=== PATIENT | female | born 1940 | race Caucasian/White ===

== ENCOUNTER → 2016-06-01 | Outpatient (CLI) | payer MEDICARE, OTHER ==
--- NOTE | 2016-06-01 09:24 | RAD ---
DATE: 06/01/2016 EXAM: MAMMO ELIECER SCREENING BILATERAL HISTORY: Routine screening COMPARISON: 11/15/2014 This study was interpreted with the benefit of Computerized Aided Detection (CAD). FINDINGS: 2-D and 3-D tomosynthesis imaging was performed in CC and MLO projections. There are scattered fibroglandular densities in the breasts. No new or enlarging breast densities are seen. Benign type calcifications are present. No suspicious microcalcifications have developed. IMPRESSION: Stable mammograms without evidence of malignancy. BI-RADS CATEGORY: 2 BENIGN FINDING(S) RECOMMENDED FOLLOW-UP: 12M 12 MONTH FOLLOW-UP PQRS compliance statement: Patient information was entered into a reminder system with a target due date for the next mammogram. Mammography is a sensitive method for finding small breast cancers, but it does not detect them all and is not a substitute for careful clinical examination. A negative mammogram does not negate a clinically suspicious finding and should not result in delay in biopsying a clinically suspicious abnormality. "Our facility is accredited by the [employer] Mammography [employer]."
== END | disposition home or self-care (01) ==
LOC: MAMMO 08:28
PROVIDERS: ATTEND Family Medicine
DX: Z12.31 Encounter for screening mammogram for malignant neoplasm of breast (principal)
CPT/HCPCS: 77063; G0202; 77067

== ENCOUNTER → 2016-06-08 | Outpatient (CLI) | payer MEDICARE, OTHER ==
--- NOTE | 2016-06-08 11:40 | RAD ---
Thyroid ultrasound, 06/08/2016: History: Enlarged thyroid gland The right lobe of the gland measures 4.2 x 1.4 x 1.2 cm while the left lobe of the gland measures 3.4 x 1.2 x 1.1 cm. The thyroid echo pattern is mildly heterogeneous. In the lower pole of the right lobe of the gland there is a nodule containing echogenic and hypoechoic components. It contains a coarse calcification anteriorly. There is a hypoechoic halo. Including the halo, this lesion measures approximately 9 x 9 x 8 mm. In the midportion of the right lobe of the gland there is a 6 x 5 x 4 mm nodule which contains hypoechoic and echogenic components. Its margins are smooth. No definite calcifications are seen. There is a 3 mm nodule with similar sonographic characteristics in the lower pole of the left lobe of the gland. No other discrete thyroid nodule is seen. IMPRESSION: Multiple thyroid nodules as described above. The sonographic characteristics of these nodules are nonspecific. The 9 mm nodule in the lower pole of the right lobe of the gland does contain a calcification. Sonographic follow-up of this nodule is suggested.
== END | disposition home or self-care (01) ==
LOC: US 10:32
PROVIDERS: ATTEND Nurse Practitioner Family
DX: E04.2 Nontoxic multinodular goiter (principal)
CPT/HCPCS: 76536

== ENCOUNTER → 2016-11-06 | Outpatient (CLI) | payer MEDICARE, OTHER ==
[~2016-11-06] MED LIST: BUPIVACAINE MPF 0.25% 10 ML VIAL. ONE; IOHEXOL 300 MG/ML 50 ML VIAL. ONE; LIDOCAINE 1% PF 30 ML VIAL. ONE; methylPREDNISolone ACETATE 40 MG/ML VIAL. ONE
== END | disposition home or self-care (01) ==
LOC: SURG 14:03
PROVIDERS: ATTEND Anesthesiology
DX: G57.01 Lesion of sciatic nerve, right lower limb (principal); I10 Essential (primary) hypertension; J45.909 Unspecified asthma, uncomplicated; Z98.890 Other specified postprocedural states
CPT/HCPCS: 20552; J1030; J2001; J3490; Q9967

== ENCOUNTER → 2016-12-25 | Outpatient (CLI) | payer MEDICARE, OTHER | END | disposition home or self-care (01) | LOC: SURG 11:09 | PROVIDERS: ATTEND Anesthesiology | DX: M54.31 Sciatica, right side (principal); J45.909 Unspecified asthma, uncomplicated; I10 Essential (primary) hypertension; K21.9 Gastro-esophageal reflux disease without esophagitis; Z98.890 Other specified postprocedural states | CPT/HCPCS: 20552; 77002; J1030; J2001; J3490; Q9967 ==

== ENCOUNTER → 2017-09-25 | Outpatient (CLI) | payer MEDICARE, OTHER ==
--- NOTE | 2017-09-26 10:11 | RAD ---
DATE: 09/25/2017 EXAM: MAMMO ELIECER SCREENING BILATERAL HISTORY: Routine screening evaluation COMPARISON: 06/01/2016, 11/15/2014, 10/21/2013 This study was interpreted with the benefit of Computerized Aided Detection (CAD). The breast parenchyma is primarily fatty replaced. Breast parenchyma level density A. FINDINGS: There are no suspicious masses, microcalcifications, or architectural distortion to suggest malignancy in either breast. IMPRESSION: No mammographic evidence for malignancy in either breast. BI-RADS CATEGORY: 1 NEGATIVE RECOMMENDED FOLLOW-UP: 12M 12 MONTH FOLLOW-UP Recommendation: In the absence of new clinical symptoms or change in physical exam, annual screening mammography is recommended. PQRS compliance statement: Patient information was entered into a reminder system with a target due date for the next mammogram. Mammography is a sensitive method for finding small breast cancers, but it does not detect them all and is not a substitute for careful clinical examination. A negative mammogram does not negate a clinically suspicious finding and should not result in delay in biopsying a clinically suspicious abnormality. "Our facility is accredited by the [employer] Mammography [employer]."
== END | disposition home or self-care (01) ==
LOC: MAMMO 10:57
PROVIDERS: ATTEND Family Medicine
DX: Z12.31 Encounter for screening mammogram for malignant neoplasm of breast (principal); I10 Essential (primary) hypertension; K21.9 Gastro-esophageal reflux disease without esophagitis
CPT/HCPCS: 77063; 77067

== ENCOUNTER 2019-03-31 21:22 | Emergency (ER) | payer MEDICARE, OTHER ==
[~2019-03-31] VITALS: Ht 157.5 cm; Wt 60.9 kg
--- NOTE | 2019-03-31 22:53 | PHYS DOC ---
Past History Past Medical History: Anxiety, Hypertension Adult General Chief Complaint Chief Complaint: HYPERTENSION " My doctor ..didnt write me a HTN med... And the pharmacy didn't get a call for a new medication.... I am worried that I need a medication tonight... " HPI HPI Patient is a 79 year old female who presents with hypertension. Patient concerned because she went to pickle sorter her new hypertensive meds but it had not reached the pharmacy. Patient normally follows Dr. Carmona. Patient denies any headaches, chest pain or dizziness. Patient does have history of anxiety. Currently her blood pressure is 170/99. Patient is very anxious about the elevated blood pressure and constantly watching a monitor. Discussed patient that I would give her some clonidine and she could remove the patch when she gets her regular blood pressure meds filled. Patient does not know the new blood pressure med or dosage. After clonidine her blood pressure running 140s/70's. Patient discharged home. Review of Systems Review of Systems Constitutional: Denies fever or chills [] Eyes: Denies change in visual acuity, redness, or eye pain [] HENT: Denies nasal congestion or sore throat [] Respiratory: Denies cough or shortness of breath [] Cardiovascular: No additional information not addressed in HPI [] GI: Denies abdominal pain, nausea, vomiting, bloody stools or diarrhea [] : Denies dysuria or hematuria [] Musculoskeletal: Denies back pain. History of arthritic complaints especially left hip. Integument: Denies rash or skin lesions [] Neurologic: Denies headache, focal weakness or sensory changes [] Endocrine: Denies polyuria or polydipsia [] All other systems were reviewed and found to be within normal limits, except as documented in this note. Family History Family History Noncontributory Current Medications Current Medications See nursing for home meds Allergies Allergies No known drug allergies Physical Exam Physical Exam Constitutional: Well developed, well nourished, no acute distress, non-toxic appearance. [] HENT: Normocephalic, atraumatic, bilateral external ears normal, oropharynx moist, no oral exudates, nose normal. [] Eyes: PERRLA, EOMI, conjunctiva normal, no discharge. [] Neck: Normal range of motion, no tenderness, supple, no stridor. [] Cardiovascular:Heart rate regular rhythm, no murmur [] Lungs & Thorax: Bilateral breath sounds equal apex on auscultation [] Abdomen: Bowel sounds normal, soft, no tenderness, no masses, no pulsatile masses. [] Skin: Warm, dry, no erythema, no rash. [] Back: No tenderness, no CVA tenderness. [] Extremities: No tenderness, no cyanosis, no clubbing, ROM intact, no edema. [] Arthritic complaints Neurologic: Alert and oriented X 3, normal motor function, normal sensory function, no focal deficits noted. [] Psychologic: Affect anxious, judgement normal, mood normal. [] EKG EKG My interpretation EKG shows sinus rhythm at 90 bpm. No findings acute STEMI or pathology[] Radiology/Procedures Radiology/Procedures Patient deferred x-rays at this time[] Course & Med Decision Making Course & Med Decision Making Pertinent Labs and Imaging studies reviewed. (See chart for details) Patient deferred labs and x-rays at this time. Comfortable with temporary use of clonidine until she could pick her hypertensive meds. Patient return if any concerns. Patient advised she became dizzy and blood Pressures became to low to just remove the clonidine patch. Patient return if any concerns. Patient advi sed to keep regular blood pressure in a notebook and show it to Dr. Leon on follow-up. [] Impression: 1. Hx. HTN 2. Anxiety 3. Request for Blood pressure meds - Pharmacy did not received the Rx. 4. History of arthritic complaints Dragon Disclaimer Dragon Disclaimer This electronic medical record was generated, in whole or in part, using a voice recognition dictation system. Departure Departure: Disposition: 01 HOME/RESIDENCE PRIOR TO ADM Condition: STABLE Referrals: VINEET LEON MD (PCP) Dragon Disclaimer This chart was dictated in whole or in part using Voice Recognition software in a busy, high-work load, and often noisy Emergency Department environment. It may contain unintended and wholly unrecognized errors or omissions. Dragon Disclaimer This chart was dictated in whole or in part using Voice Recognition software in a busy, high-work load, and often noisy Emergency Department environment. It may contain unintended and wholly unrecognized errors or omissions. Dragon Disclaimer This chart was dictated in whole or in part using Voice Recognition software in a busy, high-work load, and often noisy Emergency Department environment. It may contain unintended and wholly unrecognized errors or omissions. CAMERON CANELA MD Mar 31, 2019 22:53
[2019-03-31] MEDS ORDERED: cloNIDine TTS-2 1 PATCH PATCH TD ONE (23:00)
[2019-03-31] MEDS ORDERED: cloNIDine HCL 0.1 MG TABLET PO ONE (23:30)
[2019-04-01] MEDS ORDERED: cloNIDine HCL 0.1 MG TABLET PO ONE (01:00)
[2019-04-01] MEDS ORDERED: LORazepam 1 MG TABLET PO ONE (01:00)
[2019-04-01 01:53] VITALS: BP 149/79
--- NOTE | 2019-04-01 03:53 | EKG ---
[address] [address] Test Date: 2019-03-31 Test Time: 22:26:12 Pat Name: KIM ANDINO Department: Room: Gender: F Recruitment And Outreach Assistant: : 1940 Requested By: CAMERON CANELA Order Number: [id number] Reading MD: Measurements Intervals [place] Rate: 90 P: 32 KS: 122 QRS: 36 QRSD: 82 T: 23 QT: 348 QTc: 430 Interpretive Statements SINUS RHYTHM NO SPECIFIC ECG ABNORMALITIES RI6.01 No previous ECG available for comparison
== END 2019-04-01 02:05 | disposition home or self-care (01) ==
LOC: ER 21:22
DX: I10 Essential (primary) hypertension (principal)
CPT/HCPCS: 93005; 99284

== ENCOUNTER 2019-08-03 09:34 | Inpatient (IN) | payer MEDICARE, OTHER ==
[~2019-08-03] VITALS: Ht 154.9 cm; Wt 58.1 kg
[2019-08-03] MEDS: ATORVASTATIN CALCIUM 10 MG TABLET. PO SCH (09:00)
[2019-08-03] MEDS ORDERED: IV NORMAL SALINE 1,000ML 1,000 ML IV ONE (09:45)
[2019-08-03] MEDS ORDERED: MECLIZINE 12.5 MG TABLET. PO ONE (09:45)
[2019-08-03 10:17] LABS: BASO % 1 % (0-3); EOS # 0.2 x10^3/uL (0.0-0.7); EOS % 3 % (0-3); HEMATOCRIT 40.1 % (36.0-47.0); HEMOGLOBIN 13.2 g/dL (12.0-15.5); LYMPH # 2.3 x10^3/uL (1.0-4.8); LYMPH % 38 % (24-48); MEAN CORPUSCULAR HEMOGLOBIN 28 pg (25-35); MEAN CORPUSCULAR HGB CONC 33 g/dL (31-37); MEAN CORPUSCULAR VOLUME 86 fL (79-100); MONO # 0.5 x10^3/uL (0.0-1.1); MONO % 9 % (0-9); NEUT % 50 % (31-73); PLATELET COUNT 270 x10^3/uL (140-400); RED BLOOD COUNT 4.64 x10^6/uL (3.50-5.40); RED CELL DISTRIBUTION WIDTH 15.1 % (11.5-14.5); WHITE BLOOD COUNT 6.1 x10^3/uL (4.0-11.0)
[2019-08-03 10:24] LABS: CALCIUM 9.7 mg/dL (8.5-10.1); CREATININE 0.8 mg/dL (0.6-1.0); GFR 69.4; POTASSIUM 3.3 mmol/L (3.5-5.1)
--- NOTE | 2019-08-03 10:24 | RAD ---
RS Compliance Statement: One or more of the following individualized dose reduction techniques were utilized for this examination: 1. Automated exposure control 2. Adjustment of the mA and/or kV according to patient size 3. Use of iterative reconstruction technique CT HEAD WITHOUT CONTRAST History: Reason: dizziness / Spl. Instructions: / History: Comparison: None. Technique: Axial images are obtained of the head from the skull base through the vertex without IV contrast. Findings: No mass-effect, midline shift, extra-axial fluid collection, hemorrhage, or obvious acute infarction is identified. Basilar cisterns are patent. The ventricles and sulci are prominent, consistent with age-related cerebral atrophy. There are probably old bilateral basal ganglia lacunar infarcts. There are incidental faint calcifications of the bilateral basal ganglia. Bone windows demonstrate no acute calvarial abnormality. The visualized paranasal sinuses are clear. Mastoid air cells are well aerated. IMPRESSION: 1. No acute intracranial abnormality. 2. Generalized cerebral atrophy. 3. There are likely chronic bilateral basal ganglia lacunar infarcts. Electronically signed by: Rafita Ware MD (08/03/2019 10:22 AM) [id number]
[2019-08-03 10:31] LABS: ALBUMIN 3.8 g/dL (3.4-5.0); ALBUMIN/GLOBULIN RATIO 0.9 (1.0-1.7); TOTAL BILIRUBIN 0.4 mg/dL (0.2-1.0); TOTAL PROTEIN 7.9 g/dL (6.4-8.2)
--- NOTE | 2019-08-03 10:39 | PHYS DOC ---
Past History Past Medical History: Anxiety, Hypertension Additional Past Medical Histor: left hip pain Past Surgical History: Appendectomy, Tonsillectomy, Tubal ligation, Other Additional Past Surgical Histo: hammer toes Alcohol Use: None General Adult EDM: Chief Complaint: DIZZY/LIGHT HEADED HPI: HPI: 79-year-old female presents with concern for TIA. She was having some visual disturbances last night in the middle of the night. It seemed like the clock was running sideways. That has improved today, but she still has dizziness. She describes the dizziness as a lightheaded feeling. She has no other focal deficits. She is speaking normally. She can move all of her extremities. She came here because her primary care physician advised it. She denies fever chills. Review of Systems: Review of Systems: Constitutional: Denies fever or chills Eyes: Denies change in visual acuity HENT: Denies nasal congestion or sore throat Respiratory: Denies cough or shortness of breath Cardiovascular: Denies chest pain or edema GI: Denies abdominal pain, nausea, vomiting, bloody stools or diarrhea : Denies dysuria Musculoskeletal: Denies back pain or joint pain Integument: Denies rash Neurologic: Dizziness. Denies headache, focal weakness or sensory changes Endocrine: Denies polyuria or polydipsia Lymphatic: Denies swollen glands Psychiatric: Denies depression or anxiety Heart Score: Risk Factors: Risk Factors: DM, Current or recent (<one month) smoker, HTN, HLP, family history of CAD, obesity. Risk Scores: Score 0 - 3: 2.5% MACE over next 6 weeks - Discharge Home Score 4 - 6: 20.3% MACE over next 6 weeks - Admit for Clinical Observation Score 7 - 10: 72.7% MACE over next 6 weeks - Early Invasive Strategies Current Medications: Current Meds: Current Medications Medications (Trade) Dose Ordered Sig/Adalid Start Time Stop Time Status Last Admin Dose Admin Meclizine HCl (Antivert) 25 mg 1X ONCE 08/03/19 09:45 08/03/19 09:49 DC 08/03/19 10:33 25 MG Sodium Chloride 1,000 ml @ 1,000 mls/hr 1X ONCE 08/03/19 09:45 08/03/19 10:44 08/03/19 10:33 1,000 MLS/HR Allergies: Allergies: Allergies Coded Allergies Type Severity Reaction Last Updated Verified No Known Drug Allergies 03/31/19 No Physical Exam: PE: Constitutional: Well developed, well nourished, no acute distress, non-toxic appearance. [] HENT: Normocephalic, atraumatic, bilateral external ears normal, oropharynx moist, no oral exudates, nose normal. [] Eyes: PERRLA, EOMI, conjunctiva normal, no discharge. [] Neck: Normal range of motion, no tenderness, supple, no stridor. [] Cardiovascular:Heart rate regular rhythm, no murmur [] Lungs & Thorax: Bilateral breath sounds clear to auscultation [] Abdomen: Bowel sounds normal, soft, no tenderness, no masses, no pulsatile masses. [] Skin: Warm, dry, no erythema, no rash. [] Back: No tenderness, no CVA tenderness. [] Extremities: No tenderness, no cyanosis, no clubbing, ROM intact, no edema. [] Neurologic: Alert and oriented X 3, normal motor function, normal sensory function, no focal deficits noted. [] Psychologic: Affect normal, judgement normal, mood normal. [] Current Patient Data: Labs: Laboratory Tests Test 08/03/19 09:57 White Blood Count 6.1 x10^3/uL (4.0-11.0) Red Blood Count 4.64 x10^6/uL (3.50-5.40) Hemoglobin 13.2 g/dL (12.0-15.5) Hematocrit 40.1 % (36.0-47.0) Mean Corpuscular Volume 86 fL (79-100) Mean Corpuscular Hemoglobin 28 pg (25-35) Mean Corpuscular Hemoglobin Concent 33 g/dL (31-37) Red Cell Distribution Width 15.1 % (11.5-14.5) H Platelet Count 270 x10^3/uL (140-400) Neutrophils (%) (Auto) 50 % (31-73) Lymphocytes (%) (Auto) 38 % (24-48) Monocytes (%) (Auto) 9 % (0-9) Eosinophils (%) (Auto) 3 % (0-3) Basophils (%) (Auto) 1 % (0-3) Neutrophils # (Auto) 3.0 x10^3uL (1.8-7.7) Lymphocytes # (Auto) 2.3 x10^3/uL (1.0-4.8) Monocytes # (Auto) 0.5 x10^3/uL (0.0-1.1) Eosinophils # (Auto) 0.2 x10^3/uL (0.0-0.7) Basophils # (Auto) 0.0 x10^3/uL (0.0-0.2) Sodium Level 142 mmol/L (136-145) Potassium Level 3.3 mmol/L (3.5-5.1) L Chloride Level 104 mmol/L (98-107) Carbon Dioxide Level 32 mmol/L (21-32) Anion Gap 6 (6-14) Blood Urea Nitrogen 18 mg/dL (7-20) Creatinine 0.8 mg/dL (0.6-1.0) Estimated GFR (Cockcroft-Gault) 69.4 BUN/Creatinine Ratio 23 (6-20) H Glucose Level 89 mg/dL (70-99) Calcium Level 9.7 mg/dL (8.5-10.1) Total Bilirubin 0.4 mg/dL (0.2-1.0) Aspartate Amino Transferase (AST) 21 U/L (15-37) Alanine Aminotransferase (ALT) 29 U/L (14-59) Alkaline Phosphatase 63 U/L (46-116) Total Protein 7.9 g/dL (6.4-8.2) Albumin 3.8 g/dL (3.4-5.0) Albumin/Globulin Ratio 0.9 (1.0-1.7) L EKG: EKG: Sinus rhythm, rate 70, normal axis, no ST elevations or depressions. [] Radiology/Procedures: Radiology/Procedures: [] Impressions: PQRS Compliance Statement: One or more of the following individualized dose reduction techniques were utilized for this examination: 1. Automated exposure control 2. Adjustment of the mA and/or kV according to patient size 3. Use of iterative reconstruction technique CT HEAD WITHOUT CONTRAST History: Reason: dizziness / Spl. Instructions: / History: Comparison: None. Technique: Axial images are obtained of the head from the skull base through the vertex without IV contrast. Findings: No mass-effect, midline shift, extra-axial fluid collection, hemorrhage, or obvious acute infarction is identified. Basilar cisterns are patent. The ventricles and sulci are prominent, consistent with age-related cerebral atrophy. There are probably old bilateral basal ganglia lacunar infarcts. There are incidental faint calcifications of the bilateral basal ganglia. Bone windows demonstrate no acute calvarial abnormality. The visualized paranasal sinuses are clear. Mastoid air cells are well aerated. IMPRESSION: 1. No acute intracranial abnormality. 2. Generalized cerebral atrophy. 3. There are likely chronic bilateral basal ganglia lacunar infarcts. Electronically signed by: Rafita Ware MD (08/03/2019 10:22 AM) [id number] DICTATED AND SIGNED BY: RAFITA WARE MD DATE: 08/03/19 1022 CC: PHAN LONG DO; VINEET MCNAIR MD ~ Course & Med Decision Making: Course & Med Decision Making Pertinent Labs and Imaging studies reviewed. (See chart for details) The patient's head CT is negative for acute findings. See official report for more details of old findings. Labs are unremarkable. Urinalysis is negative for infection. The patient is still feeling unsteady and dizzy when she walks. I believe it is prudent to admit her for further observation. I spoke with Dr. Mcnair and he has accepted the patient for admission. [] Dragon Disclaimer: Dragon Disclaimer: This electronic medical record was generated, in whole or in part, using a voice recognition dictation system. Departure Departure: Impression: Primary Impression: Dizziness Additional Impression: Lacunar infarction Disposition: 01 HOME/RESIDENCE PRIOR TO ADM Condition: STABLE Referrals: VINEET MCNAIR MD (PCP) Justification of Admission: Justification of Admission: Justification of Admission Dx: Yes Comments: new onset dizziness, concern for TIA, abnormal CT findings PHAN OLNG DO Aug 03, 2019 10:39
[2019-08-03 11:11] LABS: COLOR,URINE STRAW
[2019-08-03 11:12] LABS: BACTERIA,URINE 0 /HPF (0-FEW); BILIRUBIN,URINE NEG (NEG); CLARITY,URINE CLEAR; GLUCOSE,URINE NEG (NEG); NITRITE,URINE NEG (NEG); RBC,URINE OCC /HPF (0-2); SQUAMOUS EPITHELIAL CELL,UR FEW /LPF; UROBILINOGEN,URINE 0.2 mg/dL (0.2 mg/dL)
--- NOTE | 2019-08-03 11:14 | EKG ---
[address] [address] Test Date: 2019-08-03 Test Time: 09:47:49 Pat Name: KIM ANDINO Department: Room: Gender: F Audiologist: : 1940 Requested By: PHAN LONG Order Number: [id number] Reading MD: Measurements Intervals [place] Rate: 70 P: 47 AK: 140 QRS: 30 QRSD: 84 T: 28 QT: 390 QTc: 424 Interpretive Statements SINUS RHYTHM NORMAL ECG RI6.02 No previous ECG available for comparison
[2019-08-03 12:42] VITALS: BP 188/68
[2019-08-03] MEDS ORDERED: ONDANSETRON ODT 4 MG TAB.RAPDIS PO PRN (13:30)
[2019-08-03] MEDS ORDERED: NON FORMULARY ITEM (Albuterol Sulfate (Proair Respiclick) 2 PUFF) IH SCH (13:30)
[2019-08-03] MEDS ORDERED: ACETAMINOPHEN 500 MG TABLET PO PRN (13:30)
[2019-08-03] MEDS ORDERED: ACET500T68 PO (13:34)
[2019-08-03] MEDS ORDERED: PRAV40TA2 PO (13:34)
[2019-08-03] MEDS ORDERED: CYCL-331 PO (13:34)
[2019-08-03] MEDS ORDERED: DILT120C99 PO (13:34)
[2019-08-03] MEDS ORDERED: ONDA4TAB12 PO (13:34)
[2019-08-03] MEDS ORDERED: CALC-71 PO (13:34)
[2019-08-03] MEDS ORDERED: TRIA15CR3 TP (13:34)
[2019-08-03] MEDS ORDERED: BIOT10004 PO (13:34)
[2019-08-03] MEDS ORDERED: MULT-766 PO (13:34)
[2019-08-03] MEDS ORDERED: APIX5TAB3 PO (13:34)
[2019-08-03] MEDS ORDERED: ASCO500C PO (13:34)
[2019-08-03] MEDS ORDERED: LOSA25TA PO (13:34)
[2019-08-03] MEDS ORDERED: OMEP40CA45 PO (13:34)
[2019-08-03] MEDS ORDERED: PROAIR RESPICL90 MCG IH (13:34)
[2019-08-03] MEDS ORDERED: MECLIZINE 12.5 MG TABLET. PO PRN (13:45)
[2019-08-03] MEDS: amLODIPine BESYLATE 10 MG TABLET PO SCH (13:56)
[2019-08-03] MEDS ORDERED: ALBUTEROL SULFATE 2.5 MG/3 ML NEBU. NEB PRN (14:00)
[2019-08-03] MEDS ORDERED: CYCLOBENZAPRINE 10 MG TABLET. PO SCH (14:00)
[2019-08-03 15:26] VITALS: BP 129/72
--- NOTE | 2019-08-03 15:34 | RAD ---
EXAM: Carotid Doppler sonogram. HISTORY: Dizziness. Transient ischemic attack. TECHNIQUE: Hale scale and color Doppler sonographic evaluation of the neck with spectral waveform analysis was performed and static images are submitted for review. FINDINGS: There is mild atherosclerotic plaque within the right internal and external carotid arteries. The peak systolic velocity within the right common carotid artery is 95 cm/sec. The peak systolic velocity within the right internal carotid artery is 78 cm/sec and the end diastolic velocity within the right internal carotid artery is 21 cm/sec. The right ICA/CCA ratio is 1.2. There is shadowing partially calcified atherosclerotic plaque within the proximal left internal carotid artery. The peak systolic velocity within the left common carotid artery is 100 cm/sec. The peak systolic velocity within the left internal carotid artery is 106 cm/sec and the end diastolic velocity within the left internal carotid artery is 28 cm/sec. The left ICA/CCA ratio is 1.4. There is normal antegrade flow within both vertebral arteries. IMPRESSION: No Doppler evidence of hemodynamically significant stenosis. PQRS Compliance Statement - Stenosis calculations for CT, MR and conventional angiography are based upon measurement of the distal ICA diameter in accordance with the NASCET methodology. Stenosis calculations for carotid ultrasound studies are derived from validated velocity criteria which are known to correlate with the NASCET methodology. Electronically signed by: Viviana Hernandez MD (08/03/2019 3:31 PM) [id number]
--- NOTE | 2019-08-03 15:38 | RAD ---
Sinuses 3 views INDICATION: Pressure headaches and blurred vision COMPARISON: CT head without IV contrast of 08/03/2019 FINDINGS: The paranasal sinuses appear well aerated as do the bilateral mastoid air cells. The osseous structures appear intact. No radiopaque foreign body identified besides dental amalgam. IMPRESSION: Negative sinus series. Electronically signed by: Telma Walden MD (08/03/2019 3:35 PM) [id number]
[2019-08-03] MEDS ORDERED: POTASSIUM CHLORIDE 20 MEQ TABLET.ER. PO ONE (16:00)
[2019-08-03 19:16] VITALS: BP 145/67
[2019-08-03] MEDS: APIXABAN 5 MG TABLET. PO SCH (20:05)
[2019-08-03] MEDS: TRIAMCINOLONE ACETONIDE 0.1% TOPICAL CREAM 15GM TUBE. TP SCH (20:06)
--- NOTE | 2019-08-03 22:43 | CONS ---
DATE OF CONSULTATION: 08/03/2019 REFERRING PHYSICIAN: Dr. Leon. REASON FOR CONSULTATION: Dizziness and lightheadedness. HISTORY OF PRESENT ILLNESS: This is a 79-year-old right-handed female who was admitted through Emergency Room today, on 08/03/2019 on account of dizziness, described as lightheadedness and brief visual disturbances. According to the patient, she woke up this morning and she had spells of dizziness described as "lightheadedness" preceded by a few seconds of visual disturbances. After she went to bathroom, the patient felt dizzy again. She went to bed and she woke up this morning with lightheadedness continued for several hours. She denies nausea, vomiting, chest pain, shortness of breath or palpitations, dysarthria, dysphagia, weakness or paresthesia; however, the patient has had history of atrial fibrillation diagnosed in 04/2019 when she was in recovering room after having left hip replacement. Subsequently, she was placed on Eliquis. According to the patient, when she woke up this morning, her blood pressure was 181/90. Her blood pressure in the Emergency Room was reported as 180/90. It was thought that the patient had paroxysmal atrial fibrillation, but probably was artifact. Currently, the patient denies headaches, diplopia, dysphagia, or dysarthria. She has been ambulating using a cane because of recent left hip surgery. PAST MEDICAL HISTORY: Significant for atrial fibrillations as described above, hypertension, asthma, osteoarthritis, anxiety, GERD and hyperlipidemia. PAST SURGICAL HISTORY: Significant for left hip replacement in 04/2019, appendectomy, tonsillectomy, tubal ligation and hammertoe surgery. SOCIAL HISTORY: The patient is . She denies smoking, alcohol drinking, or illicit drug use. FAMILY HISTORY: Noncontributory. CURRENT MEDICATIONS: Include pantoprazole 40 mg daily, multivitamins 1 tablet daily, vitamin D 2000 units 1 tablet daily, vitamin C 500 mg daily, losartan 25 mg p.o. daily, diltiazem 240 mg p.o. daily, Kenalog b.i.d., Eliquis 5 mg b.i.d., albuterol inhaler and nebulizer, meclizine 12.5 mg q. 6 hours p.r.n. for dizziness given in the Emergency Room and on the floor, Zofran 4 mg q. 6 hours p.r.n. for nausea and vomiting, Tylenol p.r.n., amlodipine 10 mg p.o. daily and Lipitor 10 mg p.o. daily. ALLERGIES: No known drug allergies. REVIEW OF SYSTEMS: A 10-point review of system was performed as mentioned above in history of present illness and consistent with lightheadedness. PHYSICAL EXAMINATION: GENERAL: Well-developed, well-nourished female, not in acute distress. VITAL SIGNS: Blood pressure 129/72, respiratory rate 18, pulse is 61, oxygen saturation is 96% on room air, and temperature is 97.8. HEENT: Normocephalic, atraumatic, otherwise unremarkable. NECK: Supple. Negative for carotid bruit, lymphadenopathy or thyromegaly. LUNGS: Clear to A and P. CARDIOVASCULAR: Regular rate and rhythm, normal S1, S2. There is no S3, S4 or murmurs. ABDOMEN: Soft. Bowel sounds positive. EXTREMITIES: Negative for cyanosis, clubbing, or pitting edema. NEUROLOGICAL: MENTAL STATUS: The patient is alert and oriented x 3. Speech is fluent. There is no language dysfunction. Memory, judgment, and abstracting thinking are normal. The patient denies hallucination or delusion. CRANIAL NERVES: Visual eaton are full. The pupils are reactive to light and accommodation. The extraocular movements are intact. There is no nystagmus. There is no facial motor or sensory deficits. Hearing is intact bilaterally. The palate is elevated symmetrically. Sternocleidomastoid muscles are powerful bilaterally. The patient shrugs her shoulders symmetrically, protrudes her tongue in the midline without fasciculation or atrophy. MOTOR EXAMINATION: No focal muscle bulk was seen. The tone is normal. The strength is 5/5 throughout except for the strength in the left knee extension and flexion secondary to recent left hip surgery. SENSORY EXAMINATION: Revealed normal pinprick, light touch, vibratory and position senses. Deep tendon reflexes were symmetric and hypoactive with absent Achilles responses. GAIT: The patient uses a cane for ambulation. DIAGNOSTIC DATA: A carotid Doppler study today revealed no significant arterial stenosis. Nonenhanced head CT scan revealed no acute intracranial process, but shows generalized cerebral atrophy with chronic bilateral basal ganglia lacunar infarct. Sinus x-ray revealed normal study. LABORATORY DATA: CBC revealed white blood cells of 6.1 thousand, hemoglobin 13.2, hematocrit 40.1, platelet count 278,000. Chemistry revealed sodium 142, potassium 3.3, chloride 104, CO2 of 32, BUN 18, creatinine 0.8, glucose 89, calcium 9.7. Liver enzymes are normal. CRP is normal at 2.1 and albumin is normal. Urinalysis is negative for urinary tract infections. IMPRESSION: 1. Questionable transient ischemic attack in posterior circulation described as lightheadedness; however, paroxysmal atrial fibrillation for cardiac arrhythmia could not be entirely ruled out. 2. Hypertension may have contributed to the intermittent current symptoms as described above. 3. Multiple medical problems include hypertension, hyperlipidemia, osteoarthritis and history of atrial fibrillation. RECOMMENDATIONS: 1. Continue with current management and home medications. 2. Continue with meclizine on p.r.n. basis. 3. We will arrange for brain MRI on an outpatient basis. M Lin YOUNG MD DR: MONA/negin JOB#: [id number] / [id number]
[2019-08-03 23:20] VITALS: BP 136/86
[2019-08-04 05:47] VITALS: BP 129/70
[2019-08-04 07:40] VITALS: BP 166/95
[2019-08-04] MEDS: amLODIPine BESYLATE 10 MG TABLET PO SCH (08:00)
[2019-08-04] MEDS: APIXABAN 5 MG TABLET. PO SCH (08:00)
[2019-08-04] MEDS: ATORVASTATIN CALCIUM 10 MG TABLET. PO SCH (08:01)
[2019-08-04] MEDS: TRIAMCINOLONE ACETONIDE 0.1% TOPICAL CREAM 15GM TUBE. TP SCH (08:02)
[2019-08-04 08:54] VITALS: BP 170/70
[2019-08-04 08:55] VITALS: BP 171/73
[2019-08-04 08:56] VITALS: BP 160/83
[2019-08-04] MEDS ORDERED: CALCIUM CARB/VIT D3 500/200 TABLET PO SCH (09:00)
[2019-08-04] MEDS ORDERED: PANTOPRAZOLE 40 MG TABLET. PO SCH (09:00)
[2019-08-04] MEDS ORDERED: NON FORMULARY ITEM (Biotin 1 TAB) PO SCH (09:00)
[2019-08-04] MEDS ORDERED: ASCORBIC ACID 500 MG TABLET PO SCH (09:00)
[2019-08-04] MEDS ORDERED: MULTIVITAMIN with MINERAL TABLET. PO SCH (09:00)
[2019-08-04] MEDS ORDERED: LOSARTAN 25 MG TABLET. PO SCH (09:00)
--- NOTE | 2019-08-04 09:21 | PN ---
DATE: 08/04/2019 SUBJECTIVE: The patient denies any new medical or neurological complaints. She denies dizziness or lightheadedness. She denies chest pain, shortness of breath or palpitation. OBJECTIVE: GENERAL: Well-developed, well-nourished female, not in acute distress. VITAL SIGNS: Afebrile, blood pressure 160/83, respiratory rate 20, pulse is 84 and regular, oxygen saturation 96% on room air. HEENT: Normocephalic, atraumatic, otherwise unremarkable. NECK: Supple. Negative for carotid bruit, lymphadenopathy or thyromegaly. LUNGS: Clear to A and P. CARDIOVASCULAR: Regular rate and rhythm, normal S1, S2. There is no S3, S4 or murmur. ABDOMEN: Soft. Bowel sounds positive. EXTREMITIES: Negative for cyanosis, clubbing or edema. NEUROLOGICAL EXAM: Normal mental status and intact cranial nerves. There is no focal motor or sensory deficit. Deep tendon reflexes were symmetric and hypoactive with absent Achilles responses. Gait: The patient uses a cane for ambulation. IMPRESSION: 1. Sudden onset of dizziness described as lightheadedness, etiology is uncertain, rule out paroxysmal cardiac arrhythmias as atrial fibrillation, not present at this time. 2. Multiple medical problems include hypertension, atrial fibrillations, hyperlipidemia, osteoarthritis and history of left hip replacement. RECOMMENDATIONS: Continue with current management initiated by Dr. Leon and watch for blood pressure closely. The patient is neurologically stable. We will continue with previous neurological recommendations. M Lin YONUG MD DR: MONA/negin JOB#: [id number] / [id number]
[2019-08-04] MEDS ORDERED: MECL12.573 PO (09:28)
[2019-08-04] MEDS ORDERED: PHEN15SP NS (09:28)
[2019-08-04] MEDS ORDERED: AMLO10TA8 PO (09:28)
[2019-08-04] MEDS ORDERED: PHENYLEPHRINE 0.25% NASAL SPRAY 15ML BOTTLE. NS PRN (09:30)
[2019-08-04 09:31] VITALS: BP 149/70
== END 2019-08-04 10:45 | disposition home or self-care (01) | DRG 74 ==
LOC: ER 09:34 → 1 SOUTH 11:45
PROVIDERS: ADMIT Family Medicine; ATTEND Family Medicine
DX: G90.8 Other disorders of autonomic nervous system (principal); G45.9 Transient cerebral ischemic attack, unspecified; I67.841 Reversible cerebrovascular vasoconstriction syndrome; I10 Essential (primary) hypertension; F41.9 Anxiety disorder, unspecified; K21.9 Gastro-esophageal reflux disease without esophagitis; Z96.642 Presence of left artificial hip joint; I48.0 Paroxysmal atrial fibrillation; E78.5 Hyperlipidemia, unspecified; M19.90 Unspecified osteoarthritis, unspecified site; J45.909 Unspecified asthma, uncomplicated; Z90.49 Acquired absence of other specified parts of digestive tract; Z98.51 Tubal ligation status; H53.8 Other visual disturbances
CPT/HCPCS: 36415; 70220; 70450; 80053; 81001; 85025; 86140; 93005; 93880; 96360; 96361; J8597; 99285-25; J7030

== ENCOUNTER → 2019-08-18 | Outpatient (CLI) | payer MEDICARE, OTHER ==
[2019-08-04 09:31] VITALS: BP 149/70
[~2019-08-18] MED LIST changes: +ACET500T68 PO; +AMLO10TA8 PO; +APIX5TAB3 PO; +ASCO500C PO; +BIOT10004 PO; -BUPIVACAINE MPF 0.25% 10 ML VIAL. ONE; +CALC-71 PO; +CYCL-331 PO; +DILT120C99 PO; -IOHEXOL 300 MG/ML 50 ML VIAL. ONE; -LIDOCAINE 1% PF 30 ML VIAL. ONE; +LOSA25TA PO; +MECL12.573 PO; +MULT-766 PO; +OMEP40CA45 PO; +ONDA4TAB12 PO; +PHEN15SP NS; +PRAV40TA2 PO; +PROAIR RESPICL90 MCG IH; +TRIA15CR3 TP; -methylPREDNISolone ACETATE 40 MG/ML VIAL. ONE
--- NOTE | 2019-08-18 16:32 | RAD ---
EXAM: Bilateral lower extremity venous Doppler sonogram. HISTORY: Pain and swelling. TECHNIQUE: Hale scale and color Doppler sonographic evaluation of the bilateral lower extremity veins with spectral waveform analysis was performed. FINDINGS: There is normal color flow, normal compressibility and there are normal spectral waveforms in the common femoral, superficial femoral, popliteal, posterior tibial and greater saphenous veins. IMPRESSION: No Doppler evidence of lower extremity deep venous thrombosis. Electronically signed by: Viviana Hernandez MD (08/18/2019 4:29 PM) [id number]
== END ==
LOC: US 15:56
PROVIDERS: ATTEND Family Medicine
DX: R60.9 Edema, unspecified (principal); M79.661 Pain in right lower leg; M79.662 Pain in left lower leg
CPT/HCPCS: 93970

== ENCOUNTER → 2019-08-24 | Outpatient (CLI) | payer MEDICARE, OTHER ==
[2019-08-04 09:31] VITALS: BP 149/70
[~2019-08-24] MED LIST changes: +CONTRAST GIVEN MC PRN; +IOHEXOL 240 MG/ML 50ML VIAL. ONE; +IOHEXOL 240 MG/ML 50ML VIAL. PO ONE; +IOHEXOL 300 MG/ML 75 ML VIAL. IV ONE
--- NOTE | 2019-08-24 12:23 | RAD ---
CT abdomen and pelvis with contrast History: Bilateral lower extremity swelling, worsening symptoms Technique: After the administration of intravenous contrast, CT imaging was performed of the abdomen and pelvis. Oral contrast was also given. Multiplanar images are reviewed. Exposure: One or more of the following individualized dose reduction techniques were utilized for this examination: 1. Automated exposure control 2. Adjustment of the mA and/or kV according to patient size 3. Use of iterative reconstruction technique. Comparison: None Findings: There is no significant abnormality of the visualized lung bases. There is no significant abnormality of the liver, spleen, pancreas, adrenal glands. Both kidneys enhance. There is mild bilateral renal hydronephrosis, neither ureter dilated. Gallbladder is present without obvious intraluminal abnormality by, appearance of degree of nonspecific mild thin peripheral enhancement of the gallbladder wall. There is no significant inflammatory change adjacent to the bowel. There is no evidence of bowel obstruction, free fluid, or free air. There reportedly has been appendectomy. There is some variable retained stool in colon. There is scattered calcified plaque of the abdominal aorta and branches including of the proximal bilateral renal arteries. There is artifact in the pelvis created by left hip arthroplasty. There is mild dextroscoliosis centered upon the mid lumbar spine. There is multilevel thoracolumbar degenerative disc disease and spondylosis. There is multilevel variable lumbar neural foramina compromise and lateral recess stenosis, more significant spinal stenosis at L4-5. Impression: 1. There is appearance of degree of thin gallbladder wall enhancement. Ultrasound catheterization may be beneficial to ensure no underlying mass although no definitive mass by CT. 2. There is mild bilateral renal hydronephrosis, no previous exams to evaluate for change although could be chronic. There is no hydroureter on either side. 3. There is multilevel thoracolumbar degenerative disc disease. There is multilevel variable lateral recess stenosis, worsening spinal stenosis at L4-5. There is also variable multilevel neural foramina compromise. Electronically signed by: Jaime Walden MD (08/24/2019 12:20 PM) [id number]
== END | disposition home or self-care (01) ==
LOC: CT 09:18
PROVIDERS: ATTEND Family Medicine
DX: N13.30 Unspecified hydronephrosis (principal); I70.1 Atherosclerosis of renal artery; I70.0 Atherosclerosis of aorta; M41.86 Other forms of scoliosis, lumbar region; M51.35 Other intervertebral disc degeneration, thoracolumbar region; M47.815 Spondylosis without myelopathy or radiculopathy, thoracolumbar region; M48.061 Spinal stenosis, lumbar region without neurogenic claudication
CPT/HCPCS: 74177; Q9966; Q9967

== ENCOUNTER → 2019-08-31 | Outpatient (CLI) | payer MEDICARE, OTHER ==
[2019-08-04 09:31] VITALS: BP 149/70
[~2019-08-31] MED LIST changes: -CONTRAST GIVEN MC PRN; -IOHEXOL 240 MG/ML 50ML VIAL. ONE; -IOHEXOL 240 MG/ML 50ML VIAL. PO ONE; -IOHEXOL 300 MG/ML 75 ML VIAL. IV ONE
--- NOTE | 2019-08-31 09:48 | RAD ---
EXAM: Abdomen sonogram. HISTORY: Cholecystitis. TECHNIQUE: Sonographic imaging of the abdomen was performed. COMPARISON: CT dated 08/24/2019. FINDINGS: The liver is normal in size. No focal hepatic lesion is seen. The common bile duct is normal in caliber. The gallbladder wall is normal in thickness. There is no cholelithiasis. The pancreas and inferior vena cava are obscured due to bowel gas. The right kidney measures 8.3 cm [id number]. There is a prominent right renal pelvis. The aorta is not formally assessed. IMPRESSION: 1. No sonographic evidence of cholecystitis. 2. Slight decreased right renal size. This suggests mild renal atrophy. 3. Prominent right renal pelvis. This may be due to pelviectasis or extrarenal pelvis. Electronically signed by: Viviana Hernandez MD (08/31/2019 9:45 AM) [id number]
== END | disposition home or self-care (01) ==
LOC: US 08:55
PROVIDERS: ATTEND Family Medicine
DX: K81.0 Acute cholecystitis (principal)
CPT/HCPCS: 76705

== ENCOUNTER 2019-09-20 19:53 | Emergency (ER) | payer MEDICARE, OTHER ==
[~2019-09-20] VITALS: Ht 154.9 cm; Wt 58.0 kg
--- NOTE | 2019-09-20 20:29 | PHYS DOC ---
Past History Past Medical History: A-Fib, Anxiety, Asthma, Hypertension Additional Past Medical Histor: left hip pain Past Surgical History: Appendectomy, Tonsillectomy, Tubal ligation, Other Additional Past Surgical Histo: hammer toes; hip surgery april 2019 Alcohol Use: None General Adult EDM: Chief Complaint: HYPERTENSION HPI: HPI: 79-year-old female past medical history significant for hypertension, anxiety, asthma and atrial fibrillation (on plavix & cardizem), presents to the ED with complaints of intermittent fatigable episodes of dizziness today with elevated blood pressure-has taken her bp 7-8 times at home, sbp 140-180s, DBP 90s. States she is currently being treated for sinusitis with Augmentin and has felt as if her head is foggy. Losartan was increased from 25 to 50 mg 2 weeks ago by pmd Dr. Carmona. States she was admitted in the past with identical symptoms. Was prescribed meclizine at this time and took 3 tablets today without relief. No history of head trauma falls or syncope. On no anticoagulants. Denies any alcohol or drug use. Review of systems: Denies associated fever, chills, neck stiffness, headache, blurry vision, hearing loss, tinnitus, cough, sore throat, chest pain or pressure, dyspnea, hemoptysis, nausea, vomiting, diarrhea, abdominal pain, back pain, dysuria, hematuria, flank pain, leg swelling, rash or hemoptysis. Review of Systems: Review of Systems: Constitutional: Denies fever or chills Eyes: Denies change in visual acuity Lymphatic: Denies swollen glands Psychiatric: Denies depression or anxiety Allergies: Allergies: Allergies Coded Allergies Type Severity Reaction Last Updated Verified No Known Drug Allergies 08/03/19 No Physical Exam: PE: Constitutional: Well developed, well nourished, no acute distress, non-toxic appearance. [] HENT: Normocephalic, atraumatic, bilateral external ears normal, oropharynx moist, no oral exudates, nose normal. [] Eyes: PERRLA, EOMI, conjunctiva normal, no discharge. [] +horizontal nystagmus, Neck: Normal range of motion, no tenderness, supple, no stridor. [] Cardiovascular:Heart rate regular rhythm, no murmur [] Lungs & Thorax: Bilateral breath sounds clear to auscultation [] Abdomen: Bowel sounds normal, soft, no tenderness, no masses, no pulsatile masses. [] Skin: Warm, dry, no erythema, no rash. [] Back: No tenderness, no CVA tenderness. [] Extremities: No tenderness, no cyanosis, no clubbing, ROM intact, no edema. [] Neurologic: Alert and oriented X 3, normal motor function, normal sensory function, no focal deficits noted. HINTS exam consistent with peripheral causes, normal FNF/NALINI Psychologic: Affect normal, judgement normal, mood normal. [] Current Patient Data: Vital Signs: Vital Signs Date Time Temp Pulse Resp B/P (MAP) Pulse Ox O2 Delivery O2 Flow Rate FiO2 09/20/19 20:04 98.0 88 20 180/91 (120) 97 Room Air EKG: EKG: Normal sinus rhythm at 77 bpm, no axis deviation, normal intervals, no T wave inversions, no ST elevations or ST depressions Radiology/Procedures: Radiology/Procedures: [] IMAGING REPORT Signed PATIENT: KIM ANDINO ACCOUNT: [id number] : 1940 LOCATION: ER AGE: 79 SEX: F EXAM STATUS: REG ER ORD. PHYSICIAN: SUSI POWER DO REASON: dizzy, htn PROCEDURE: CT HEAD WO CONTRAST CT HEAD WO CONTRAST History:Dizziness, hypertension Comparison: August 03, 2019 Technique: Noncontrast CT imaging was performed of the head. Exposure: One or more of the following individualized dose reduction techniques were utilized for this examination: 1. Automated exposure control 2. Adjustment of the mA and/or kV according to patient size 3. Use of iterative reconstruction technique. Findings: There is no evidence of acute intracranial hemorrhage. There is again mild generalized supratentorial atrophy, ventricular size proportionate to sulcal spaces. There are again some foci of lower density of the bilateral basal ganglia which may be sequela of old lacunar infarcts. Hale-white differentiation of the major vascular territories is preserved. There is again small posterior sphenoid sinus mucous retention cyst. Mastoid air cells are aerated. Impression: 1. No acute intracranial abnormality is identified. Electronically signed by: Arsen Llamas MD (09/20/2019 8:55 PM) [facility] DICTATED AND SIGNED BY: ARSEN LLAMAS MD DATE: 09/20/192054 CC: VINEET MCNAIR MD; SUSI POWER DO ~ IMAGING REPORT Signed PATIENT: KIM ANDINO ACCOUNT: [id number] : 1940 LOCATION: ER AGE: 79 SEX: F EXAM STATUS: REG ER ORD. PHYSICIAN: SUSI POWER DO REASON: dizzy, HTN PROCEDURE: CHEST AP ONLY Exam: Chest one view INDICATION: Dizzy, hypertension TECHNIQUE: Frontal view of the chest Comparisons: None FINDINGS: The cardiomediastinal silhouette and pulmonary vessels are within normal limits. The lung and pleural spaces are clear. IMPRESSION: No acute cardiopulmonary process. Electronically signed by: Heriberto Ramos MD (09/20/2019 8:38 PM) [id number] DICTATED AND SIGNED BY: HERIBERTO RAMOS MD DATE: 09/20/192037 CC: VINEET MCNAIR MD; SUSI POWER DO ~ Course & Med Decision Making: Course & Med Decision Making Pertinent Labs and Imaging studies reviewed. (See chart for details) Concern for intermittent, fatigable dizziness (since 8am today) in the setting of hypertension, labs show no end organ damage, normal renal function. Unremarkable chest x-ray, EKG and CT head. Pt initially ambulated in ed and almost feel-states "I needed my shoes on." On repeat evaluation w/shoes, pt with steady gait w/her cane, no ataxia. Pt does not want to be admitted to the hospital despite my recommendations for MRI. States her vertigo resolved with valium in the ed. Dizziness is fatigable and could be related to pts' sinus infection, which makes peripheral vertigo more likely. Due to this, life- threatening processes have been considered but are low suspicion. Recommended patient follow-up with her primary care physician for BP recheck. Referral to ENT given. Strict ED return precautions were given for symptomatic hypertension, stroke symptoms, ataxia/dizziness or confusion. All of patient's questions were answered and she was stable at time of discharge. Differential includes cerebrovascular accident, cerebellar stroke, acute coronary syndrome, carbon monoxide poisoning or other toxidrome, arrhythmia, Guillan Pollock syndrome, thyroid disease, central and peripheral vertigo, intracranial hemorrhage, vertebrobasilar insufficiency, heat stroke, electrolyte disorder, rheumatologic or autoimmune disorder. I spoken with the patient and her caregivers. I explained the patient's condition, diagnoses and treatment plan based on the information available to me at this time. I have answered the patient and her caregiver's questions and addressed any concerns. The patient and her caregivers have a good understanding of patient's diagnosis, condition and treatment plan as can be expected at this point. Vital signs have been stable. Patient's condition is stable and appropriate for discharge from the emergency department. Patient will pursue further outpatient evaluation with primary care physician or other designated or consulting physician as outlined in the discharge instructions. The patient and/or caregivers are agreeable to this plan of care and follow-up instructions have been explained in detail. The patient and/or caregivers have received these instructions in written form and have expressed an understanding of the discharge instructions. The patient and/or caregivers are aware that any significant change of condition or worsening of symptoms should prompt immediate return to this or the closest emergency department or call to 911. Taylor Disclaimer: Taylor Disclaimer: This electronic medical record was generated, in whole or in part, using a voice recognition dictation system. Departure Departure: Impression: Primary Impression: Hypertension Additional Impressions: Dizziness Sinusitis Disposition: HOME/RESIDENCE PRIOR TO ADM Condition: STABLE Referrals: VINEET MCNAIR MD (PCP) Patient Instructions: Dizziness, Hypertension Additional Instructions: Follow-up with Dr. Vergara and Zackary, early childhood teacher, otol aryngology [address] [facility], [address] [place] [address] [facility]: [phone] Scripts Ondansetron Hcl (ZOFRAN) 4 Mg Tablet 1 TAB PO PRN Q6HRS PRN for NAUSEA, #10 TAB Prov: SUSI POWER DO 09/20/19 Meclizine Hcl (MECLIZINE HCL) 12.5 Mg Tablet 12.5 TAB PO TID for vertigo, #20 TAB 0 Refills Prov: SUSI POWRE DO 09/20/19 Justification of Admission: Justification of Admission: Justification of Admission Dx: N/A SUSI POWER DO Sep 20, 2019 20:29
[2019-09-20 20:34] LABS: BASO % 1 % (0-3); EOS # 0.1 x10^3/uL (0.0-0.7); EOS % 1 % (0-3); HEMATOCRIT 40.5 % (36.0-47.0); HEMOGLOBIN 13.4 g/dL (12.0-15.5); LYMPH # 2.4 x10^3/uL (1.0-4.8); LYMPH % 33 % (24-48); MEAN CORPUSCULAR HEMOGLOBIN 29 pg (25-35); MEAN CORPUSCULAR HGB CONC 33 g/dL (31-37); MEAN CORPUSCULAR VOLUME 88 fL (79-100); MONO # 0.5 x10^3/uL (0.0-1.1); MONO % 6 % (0-9); NEUT # 4.4 x10^3uL (1.8-7.7); NEUT % 59 % (31-73); PLATELET COUNT 268 x10^3/uL (140-400); RED BLOOD COUNT 4.61 x10^6/uL (3.50-5.40); RED CELL DISTRIBUTION WIDTH 15.1 % (11.5-14.5); WHITE BLOOD COUNT 7.4 x10^3/uL (4.0-11.0)
[2019-09-20 20:39] LABS: CALCIUM 9.2 mg/dL (8.5-10.1); GFR 53.6; POTASSIUM 3.5 mmol/L (3.5-5.1)
--- NOTE | 2019-09-20 20:40 | RAD ---
Exam: Chest one view INDICATION: Dizzy, hypertension TECHNIQUE: Frontal view of the chest Comparisons: None FINDINGS: The cardiomediastinal silhouette and pulmonary vessels are within normal limits. The lung and pleural spaces are clear. IMPRESSION: No acute cardiopulmonary process. Electronically signed by: Heriberto Jaime MD (09/20/2019 8:38 PM) [id number]
[2019-09-20 20:44] LABS: ALBUMIN 3.7 g/dL (3.4-5.0); ALBUMIN/GLOBULIN RATIO 0.9 (1.0-1.7); TOTAL BILIRUBIN 0.3 mg/dL (0.2-1.0); TOTAL PROTEIN 7.9 g/dL (6.4-8.2)
--- NOTE | 2019-09-20 20:59 | RAD ---
CT HEAD WO CONTRAST History:Dizziness, hypertension Comparison: August 03, 2019 Technique: Noncontrast CT imaging was performed of the head. Exposure: One or more of the following individualized dose reduction techniques were utilized for this examination: 1. Automated exposure control 2. Adjustment of the mA and/or kV according to patient size 3. Use of iterative reconstruction technique. Findings: There is no evidence of acute intracranial hemorrhage. There is again mild generalized supratentorial atrophy, ventricular size proportionate to sulcal spaces. There are again some foci of lower density of the bilateral basal ganglia which may be sequela of old lacunar infarcts. Hale-white differentiation of the major vascular territories is preserved. There is again small posterior sphenoid sinus mucous retention cyst. Mastoid air cells are aerated. Impression: 1. No acute intracranial abnormality is identified. Electronically signed by: Jaime Walden MD (09/20/2019 8:55 PM) KERN VALLEYEleni
[2019-09-20] MEDS ORDERED: diazePAM 5 MG TABLET. PO ONE (21:00)
[2019-09-20 22:03] VITALS: BP 160/77
[2019-09-20] MEDS ORDERED: ONDA4TAB7 PO (23:10)
[2019-09-20] MEDS ORDERED: MECL12.573 PO (23:10)
--- NOTE | 2019-09-21 08:43 | EKG ---
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
== END 2019-09-20 23:50 | disposition home or self-care (01) ==
LOC: ER 19:53
DX: I10 Essential (primary) hypertension (principal); R42 Dizziness and giddiness; J32.9 Chronic sinusitis, unspecified; I48.91 Unspecified atrial fibrillation; J45.909 Unspecified asthma, uncomplicated; F41.9 Anxiety disorder, unspecified
CPT/HCPCS: 36415; 70450; 71045; 80053; 84484; 85025; 93005; 99285

== ENCOUNTER → 2021-04-27 | Outpatient (CLI) | payer MEDICARE, OTHER ==
[~2021-04-27] MED LIST changes: +AMLO-187 PO; -AMLO10TA8 PO; -CYCL-331 PO; +CYCL10TA19 PO; +IOHEXOL 350 MG/ML 100 ML VIAL. IV ONE; -MECL12.573 PO; +MECL12.582 PO; -OMEP40CA45 PO; +OMEP40CA7 PO; +ONDA4TAB7 PO; +TRIA15CR TP; -TRIA15CR3 TP
[2021-04-27 09:32] LABS: CREATININE 0.8 mg/dL (0.6-1.0)
--- NOTE | 2021-04-27 10:14 | RAD ---
EXAM: CT angiography of the chest with intravenous contrast. HISTORY: Elevated d-dimer. Chest pain. TECHNIQUE: Computed tomographic images of the chest were obtained following the administration of int ravenous contrast according to angiography protocol. Multiplanar reformatting was performed and three dimensional maximum intensity projection images were obtained. *One or more of the following individualized dose reduction techniques were utilized for this examina tion: 1. Automated exposure control. 2. Adjustment of the mA and/or kV according to patient size. 3. Use of iterative reconstruction technique. COMPARISON: None. FINDINGS: There is no pulmonary embolism. The aorta is normal in caliber. There is no aortic dissecti on. The heart is normal in size. There is no lymphadenopathy. There are few calcified mediastinal and hilar granulomas. There is no pneumothorax or pleural effusion. There is biapical pleural parenchymal scarring with ass ociated pleural-based nodularity. There is a 2 mm groundglass nodule within the lateral right lung ap ex which is also likely due to adjacent scarring. There is a 4 mm pleural-based nodule within the ant erior right middle lobe along the minor fissure, likely due to a fissural lymph node. There is a 2 mm groundglass nodule within the posterior right lower lobe, possibly due to subsegmental atelectasis. There are few tiny groundglass nodules measuring up to 2 mm within the right upper lobe adjacent to p ulmonary vessels, likely postinfectious or postinflammatory. There is no acute infiltrate. Evaluation of the upper abdomen demonstrates multiple small left renal parapelvic cysts. Follow-up is not routinely performed for simple cysts. There is calcified atherosclerotic plaque resulting in 50- 69 percent stenosis involving the proximal superior mesenteric artery and near complete occlusion of the origins of the renal arteries. There are degenerative changes throughout the spine. There is no a cute or suspicious osseous finding. IMPRESSION: 1. No evidence of pulmonary embolism or alternative acute thoracic finding. 2. Several small groundglass nodular opacities measuring up to 2 mm. These are likely benign based on size. There is also a 4 mm nodule abutting the pleura of the anterior right middle lobe, likely due to a fissural lymph node. Follow-up can be performed in one year if there are risk factors for pulmon chacorta neoplasm. 3. Aortic and aortic branch vessel atherosclerosis, described above. Electronically signed by: Viviana Hernandez MD (04/27/2021 10:11 AM) [id number]
== END ==
LOC: CT 08:35
PROVIDERS: ATTEND Family Medicine
DX: R91.8 Other nonspecific abnormal finding of lung field (principal); I70.1 Atherosclerosis of renal artery; I70.0 Atherosclerosis of aorta; J84.10 Pulmonary fibrosis, unspecified; M47.819 Spondylosis without myelopathy or radiculopathy, site unspecified
CPT/HCPCS: 36415; 71275; 82565; 84520; Q9967

== ENCOUNTER → 2021-05-11 | Outpatient (CLI) | payer MEDICARE, OTHER ==
[~2021-05-11] MED LIST changes: -IOHEXOL 350 MG/ML 100 ML VIAL. IV ONE
--- NOTE | 2021-05-12 10:32 | RAD ---
EXAM: RENAL ULTRASOUND CLINICAL HISTORY: Reason: ATHEROSCLEROSIS / Spl. Instructions: / History: COMPARISON: None available. TECHNIQUE: Ultrasound examination of the bilateral kidneys and urinary bladder was performed. FINDINGS: Real-time grayscale and color and spectral Doppler evaluation of the aorta and renal vasculature is p erformed. The right kidney measures 8.6 x 3.6 x 3.9 cm and the left measures 8.6 x 4.3 x 4.9 cm. Ther e is cortical thinning and reduced cortical medullary differentiation particularly involving the righ t kidney. No hydronephrosis or focal parenchymal abnormality involving either kidney. The aorta is no naneurysmal and patent with a peak systolic velocity 160 m/s. The right renal artery is patent as wel l, with rectal broadening and focally elevated peak systolic velocity of 327 cm/s consistent with hem odynamically significant proximal renal artery stenosis. The left renal artery is also patent and dem onstrates similar findings with markedly elevated velocities of 354 cm/s proximally and 288 cm/s with in the mid segment suggesting hemodynamically significant lung or tandem stenosis. IMPRESSION: 1. Findings suggests hemodynamically significant bilateral renal artery stenosis as described. Consid er further evaluation with CTA or conventional angiography if endovascular treatment is contemplated. Electronically signed by: Gibran Marie MD (05/12/2021 10:30 AM) [id number]
== END ==
LOC: US 08:54
PROVIDERS: ATTEND Family Medicine
DX: N28.89 Other specified disorders of kidney and ureter (principal); I70.1 Atherosclerosis of renal artery
CPT/HCPCS: 93975